=== PATIENT | female | born 1955 | race American Indian/Alaskan Native ===

== ENCOUNTER 2016-09-23 06:45 | Day surgery (SDC) | payer MEDICARE, OTHER ==
[2016-09-23 08:18] LABS: Blood Urea Nitrogen 21 mg/dL (7-17)
[2016-09-23] MEDS ORDERED: VERSED IV ONE (08:40)
[2016-09-23] MEDS ORDERED: VALIUM ONE (08:40)
[2016-09-23] MEDS ORDERED: BENADRYL ONE (08:56)
[2016-09-23] MEDS ORDERED: VALIUM PO ONE (09:00)
[2016-09-23] MEDS ORDERED: VERSED IV NR (09:00)
--- NOTE | 2016-09-23 10:18 | Magnetic Resonance Report ---
MR LOWER EXTREMITY JOINT RIGHT WITHOUT CONTRAST HISTORY: Chronic right knee pain. TECHNIQUE: Multiple T1 and T2-weighted images with and without fat suppression were obtained through the right knee. FINDINGS: No relevant comparison. The bone marrow signal is within normal limits. No evidence for fracture, suspicious bone lesion or osteochondral defect. 7 mm enchondroma in the distal femoral metaphysis is noted. A horizontal cleavage tear is identified throughout the body and anterior horn of the lateral meniscus. A para meniscal cyst is identified laterally measuring 12 x 7 x 9 mm. This cyst slightly displaces the lateral collateral ligaments. The medial meniscus is within normal limits. The ACL, PCL, MCL, LCL complex and extensor complex are intact. There is increased linear signal near the apex of the retropatellar cartilage which is best demonstrated on the axial proton density fat sat images. This appears to represent a small cartilage fissure. No large full thickness defect is identified. The remainder of the patella is unremarkable. Trace joint effusion is noted. No popliteal cyst. IMPRESSION: Horizontal cleavage tear in the lateral meniscus with associated para meniscal cyst as described. Retropatellar cartilage fissure. Trace joint effusion.
[2016-09-23 11:21] VITALS: BP 106/87
--- NOTE | 2016-09-23 11:25 | Magnetic Resonance Report ---
MRI BRAIN WITH/WITHOUT CONTRAST: History: Vertigo Technique: Multiple T1 and T2 weighted images were obtained in multiple planes. Axial diffusion and gradient imaging was performed. Post contrast T1 images in two planes were obtained following IV gadolinium. Findings: The brain parenchyma signal intensity and its marsh-white interface are normal on all sequences. Minimal nonspecific T2 signal abnormalities in the white matter are noted and appropriate for this patient's age. No diffusion restriction, hemorrhage, mass effect or extra-axial fluid collection. Ventricular size is normal and symmetric. The basal cisterns are clear. The brainstem and cerebellar hemispheres are within normal limits. The fourth ventricle is midline. The paranasal sinuses and mastoid air cells are well aerated. Normal flow voids are identified in the appropriate vessels at the [place]. No abnormal enhancement is identified following IV gadolinium. Impression: 1. Unremarkable MRI brain with and without contrast.
--- NOTE | 2016-09-23 11:33 | Magnetic Resonance Report ---
MRI LUMBAR SPINE WITHOUT CONTRAST HISTORY: Back pain. TECHNIQUE: axial T1, T2. sagittal T1,T2, STIR. COMPARISON: none. FINDINGS: The conus terminates at T12-L1. No signal abnormality or mass. The cauda equina is within normal limits. No central canal stenosis. Normal height and alignment of the lumbar vertebra. The facet joints are in appropriate relationship. Normal bone marrow signal. No acute fracture or suspicious bone lesion. The paraspinal soft tissues are unremarkable. L1-2: No abnormality. L2-3: No abnormality with the disc. Mild facet arthropathy. L3-4: No abnormality with disc. Mild facet arthropathy. L4-5: Mild disc desiccation and narrowing are identified. Moderate to severe hypertrophic facet arthropathy is identified. Moderate thickening of the ligamentum flavum. There is moderate central canal narrowing measuring 7 mm in AP dimension at this level. Bilateral neural foraminal narrowing is estimated at 50%. L5-S1: No significant abnormality with the disc. Mild facet arthropathy. Bilateral neural foraminal narrowing is estimated at 50-75%. IMPRESSION: Lumbar spondylosis as described above. The most affected level appears to be L4-5 where there is moderate central canal narrowing and [id number] bilateral neural foraminal narrowing. Please see above.
== END 2016-09-23 11:45 | disposition home or self-care (01) ==
LOC: OPU 06:45 → EDSTATUS 07:30 → OPU 11:45
PROVIDERS: ATTEND Specialist
DX: M47.896 Other spondylosis, lumbar region (principal); M48.06 Spinal stenosis, lumbar region; S83.282A Other tear of lateral meniscus, current injury, left knee, initial encounter; M23.000 Cystic meniscus, unspecified lateral meniscus, right knee; M94.8X6 Other specified disorders of cartilage, lower leg; X58.XXXA Exposure to other specified factors, initial encounter
CPT/HCPCS: 36415; 70553; 72148; 73721; 82565; 84520; A9577; J2250; J1200